=== PATIENT | female | born 1980 | race Caucasian/White ===

== ENCOUNTER 2023-11-27 08:49 | Inpatient (IN) ==
[~2023-11-27 08:49] MED LIST: MAGNESIUM SULFATE IVPB SCH; NS 0.9% IVPB SCH; POTASSIUM CHLORIDE IVPB SCH
[2023-11-27 09:30] LABS: Hematocrit 29.3 % (35-45); Hemoglobin 9.4 g/dL (11.5-14.3); Mean Corpuscular Hemoglobin 24.7 pg (27-33); Mean Corpuscular Volume 77.3 fL (80-97); Platelet Count 298 10^3/uL (150-450); Red Blood Count 3.79 10^6/uL (3.63-4.92); Red Cell Distribution Width 15.7 % (12-17); White Blood Count 4.6 10^3/uL (3.8-11.8)
[2023-11-27 09:32] LABS: ABS Eosinophils 0.2 10^3/uL (0.0-0.5); ABS Monocytes 1.2 10^3/uL (0.0-0.9); ABS Neutrophils 2.3 10^3/uL (1.5-7.6); Eosinophil % 4.7 %; Lymphocyte % 20.9 %; Nucleated Red Blood Cells % 0.1 %/100WBC (0.0-0.8)
[2023-11-27 09:49] LABS: Calcium 7.6 mg/dL (8.6-10.3); Creatinine, Serum 0.48 mg/dL (0.51-0.95); Magnesium 1.5 mg/dL (1.9-2.7); eGFR CKD-EPI 120.5 (>60)
[2023-11-27] MEDS ORDERED: NS 0.9% 1000 ml BAG 1,000 ML IV SCH ×2 (11:30→12:09)
[2023-11-27] MEDS ORDERED: Zosyn per Pharmacy NOTE FOLLOW UP SCH (12:00)
[2023-11-27] MEDS ORDERED: Ondansetron ODT 4 mg TAB 4 MG TAB PO PRN (12:26)
[2023-11-27] MEDS: Enoxaparin 40 MG/0.4 ML SYR SUBCUT SCH (15:56)
[2023-11-27] MEDS ORDERED: Piperacillin/Tazobac 3.375 BAG 3.375 GM/100 ML BAG IV ONE (16:00)
[2023-11-27] MEDS: Diphenoxylat/Atrop 2.5-0.025mg TAB PO PRN (17:19)
[2023-11-27] MEDS: ZOSYN 3.375 GM Q8H per EXTENDED INFUSION IV SCH (20:45)
[2023-11-28] MEDS: ZOSYN 3.375 GM Q8H per EXTENDED INFUSION IV SCH (05:01)
[2023-11-28 05:11] LABS: Hematocrit 24.3 % (35-45); Hemoglobin 7.9 g/dL (11.5-14.3); Mean Corpuscular Hemoglobin 25.2 pg (27-33); Mean Corpuscular Hgb Conc 32.7 g/dL (31-36); Mean Platelet Volume 6.6 fL (7.5-11.2); Platelet Count 255 10^3/uL (150-450); Red Blood Count 3.15 10^6/uL (3.63-4.92); Red Cell Distribution Width 16.2 % (12-17); White Blood Count 4.6 10^3/uL (3.8-11.8)
[2023-11-28 05:15] LABS: ABS Eosinophils 0.4 10^3/uL (0.0-0.5); ABS Lymphocytes 1.3 10^3/uL (1.0-4.8); ABS Neutrophils 1.9 10^3/uL (1.5-7.6); Eosinophil % 9.2 %; Lymphocyte % 27.7 %; Nucleated Red Blood Cells % 0.1 %/100WBC (0.0-0.8)
[2023-11-28 05:28] LABS: Albumin 2.4 g/dL (3.2-5.2); Albumin/Globulin Ratio 1.5 (1-3); Calcium 7.2 mg/dL (8.6-10.3); Creatinine, Serum 0.43 mg/dL (0.51-0.95); Globulin 1.6 g/dL (2-4); Total Bilirubin 0.3 mg/dL (0.2-1.0); eGFR CKD-EPI 123.7 (>60)
[2023-11-28 09:10] LABS: Magnesium 1.7 mg/dL (1.9-2.7)
[2023-11-28] MEDS: Diphenoxylat/Atrop 2.5-0.025mg TAB PO PRN (10:50)
[2023-11-28] MEDS ORDERED: Magnesium Sulf 4 GM/100 ML IV 4,000 MG/100 ML BAG IVPB ONE (12:30)
[2023-11-28] MEDS ORDERED: Potassium Chlor 20 meq TAB.ER PO ONE (12:34)
[2023-11-28 14:22] VITALS: BP 110/77
[2023-11-28] MEDS: KCL 20 MEQ/100 ML IVPREMIX 20 MEQ/100 ML BAG IV SCH ×2 (16:12→17:10)
[2023-11-28] MEDS ORDERED: Potassium Chloride LIQUID 20 MEQ/15 ML LIQUID PO ONE (16:20)
[2023-11-28] MEDS: Enoxaparin 40 MG/0.4 ML SYR SUBCUT SCH (16:36)
== END 2023-11-28 18:30 | disposition home or self-care (01) | DRG 425 ==
LOC: CHOA 08:49 → SSU 11:24
PROVIDERS: ADMIT Internal Medicine Hematology & Oncology; ATTEND Internal Medicine

== ENCOUNTER 2024-01-14 11:31 | Inpatient (IN) ==
[2024-01-14 12:18] LABS: Hematocrit 34.7 % (35-45); Hemoglobin 11.3 g/dL (11.5-14.3); Mean Corpuscular Hemoglobin 24.9 pg (27-33); Mean Corpuscular Hgb Conc 32.4 g/dL (31-36); Mean Corpuscular Volume 76.8 fL (80-97); Platelet Count 299 10^3/uL (150-450); Red Blood Count 4.52 10^6/uL (3.63-4.92); Red Cell Distribution Width 23.2 % (12-17); White Blood Count 1.6 10^3/uL (3.8-11.8)
[2024-01-14] MEDS: Lactated Ringers 1000 ml BAG 1,000 ML IV ONE (13:00)
[2024-01-14 13:10] LABS: Albumin 2.6 g/dL (3.2-5.2); Albumin/Globulin Ratio 1.5 (1-3); C Reactive Protein 188.06 mg/L (<8.01); Calcium 7.8 mg/dL (8.6-10.3); Creatinine, Serum 0.72 mg/dL (0.51-0.95); Globulin 1.7 g/dL (2-4); Magnesium 1.6 mg/dL (1.9-2.7); Potassium 4.1 mmol/L (3.5-5.0); Total Bilirubin 0.8 mg/dL (0.2-1.0); Total Protein 4.3 g/dL (6.4-8.9); eGFR CKD-EPI 106.3 (>60)
[2024-01-14 13:44] LABS: High Sensitivity Troponin 1 Hr 12 pg/mL (<15)
[2024-01-14 14:40] LABS: ABS Lymphocytes 0.4 10^3/uL (1.0-4.8); ABS Monocytes 0.6 10^3/uL (0.0-0.9); ABS Neutrophils 0.6 10^3/uL (1.5-7.6); ABS Nucleated RBC 0.01 10^3/ul; Eosinophil % 0.2 %; Nucleated Red Blood Cells % 0.7 %/100WBC (0.0-0.8)
[2024-01-14 14:41] LABS: Anisocytosis 2+; Microcytosis 1+
[2024-01-14] MEDS: Iohexol 300 (CONTRAST) 10 ML SDV IV ONE (14:54)
[2024-01-14] MEDS: Magnesium Sulfate 2 gm BAG 2 GM/50 ML BAG IVPB ONE (15:06)
[2024-01-14] MEDS: Morphine 4 MG/ML VIAL (1 ml) IV ONE ×2 (15:06→18:55)
[2024-01-14] MEDS: CALCIUM GLUCONATE 1GM/50ML NS 1 GM/50 ML BAG IV ONE (16:15)
[2024-01-14] MEDS: Enoxaparin 40 MG/0.4 ML SYR SUBCUT ONE (18:21)
[2024-01-14] MEDS: Ondansetron 4 mg VIAL 2 MG/ML 2 ml VIAL IV ONE (21:18)
[2024-01-14 22:16] LABS: Urine Appearance Clear; Urine Bacteria Absent /HPF (Absent); Urine Bilirubin Negative (Negative); Urine Blood Negative (Negative); Urine Color Yellow; Urine Glucose Negative (Negative); Urine Ketones 1+ (Negative); Urine Nitrite Negative (Negative); Urine Protein 1+ (>=30 mg/dL) (Negative); Urine Red Blood Cell 1+(3-5/hpf) /HPF (0-Trace); Urine Specific Gravity >1.050 (1.002-1.030); Urine Squamous Epithelial Cell Present /HPF (Absent); Urine Urobilinogen Negative (Negative); Urine White Blood Cell Trace(0-5/hpf) /HPF (0-Trace)
[2024-01-15] MEDS: Heparin DRIP 25,000 UNITS BAG 25,000 UNITS/250 ML BAG IV SCH (01:42)
[2024-01-15] MEDS: Heparin 5000 UNITS/ML 1 mL VIAL IV SCH (01:44)
[2024-01-15] MEDS: Metoclopramide 5 MG/ML VIAL (10 mg) IV PRN (02:07)
[2024-01-15] MEDS: Lactated Ringers 1000 ml BAG 1,000 ML IV SCH ×2 (02:07→11:48)
[2024-01-15] MEDS: Scopolamine 1 mg/72hr PATCH TRANSDERM SCH (02:08)
[2024-01-15] MEDS: Labetalol IV 5 MG/ML 20 ml VIAL IV PUSH ONE (08:42)
[2024-01-15] MEDS: Morphine 2 MG/ML SYRINGE IV ONE (08:43)
[2024-01-15 08:50] LABS: Albumin 2.5 g/dL (3.2-5.2); Albumin/Globulin Ratio 1.4 (1-3); Calcium 7.4 mg/dL (8.6-10.3); Creatinine, Serum 0.81 mg/dL (0.51-0.95); Globulin 1.8 g/dL (2-4); Magnesium 1.8 mg/dL (1.9-2.7); Potassium 4.9 mmol/L (3.5-5.0); Total Bilirubin 0.8 mg/dL (0.2-1.0); Total Protein 4.3 g/dL (6.4-8.9); eGFR CKD-EPI 92.3 (>60)
[2024-01-15] MEDS ORDERED: Sulfur Hexaflouride MICROSPHR 25 MG VIAL ONE (09:42)
[2024-01-15 09:46] LABS: Hematocrit 35.9 % (35-45); Hemoglobin 11.8 g/dL (11.5-14.3); Mean Corpuscular Hemoglobin 24.9 pg (27-33); Mean Corpuscular Hgb Conc 32.7 g/dL (31-36); Mean Corpuscular Volume 76.1 fL (80-97); Mean Platelet Volume 7.7 fL (7.5-11.2); Platelet Count 394 10^3/uL (150-450); Red Blood Count 4.72 10^6/uL (3.63-4.92); Red Cell Distribution Width 23.9 % (12-17)
[2024-01-15 10:21] LABS: Anisocytosis 2+; Microcytosis 1+; Polychromasia 1+
[2024-01-15 10:22] LABS: ABS Lymphocytes 0.6 10^3/ul (1.0-4.8); ABS Monocytes 0.2 10^3/ul (0.0-0.9)
[2024-01-15 10:26] LABS: ABS Neutrophils 0.2 10^3/ul (1.5-7.6)
[2024-01-15] MEDS: Droperidol 5 MG/2 ML 2 ML VIAL IM ONE (11:09)
[2024-01-15] MEDS: Dexamethasone IV 4 MG/ML VIAL 1 ml VIAL IV SLOW PU ONE (11:46)
[2024-01-15] MEDS: Ondansetron 4 mg VIAL 2 MG/ML 2 ml VIAL IV PRN (16:26)
[2024-01-15] MEDS: Enoxaparin 80 MG/0.8 ML SYR SUBCUT SCH (22:05)
[2024-01-16 07:19] LABS: Calcium 7.1 mg/dL (8.6-10.3); Creatinine, Serum 0.8 mg/dL (0.51-0.95); Magnesium 1.8 mg/dL (1.9-2.7); Potassium 4.3 mmol/L (3.5-5.0); eGFR CKD-EPI 93.7 (>60)
[2024-01-16 07:51] LABS: Hemoglobin 9.9 g/dL (11.5-14.3); Mean Corpuscular Hemoglobin 25.1 pg (27-33); Mean Platelet Volume 7.5 fL (7.5-11.2); Platelet Count 334 10^3/uL (150-450); Red Blood Count 3.95 10^6/uL (3.63-4.92); Red Cell Distribution Width 23.7 % (12-17); White Blood Count 2.3 10^3/uL (3.8-11.8)
[2024-01-16] MEDS: Dexamethasone IV 4 MG/ML VIAL 1 ml VIAL IV SLOW PU ONE ×2 (08:49→11:52)
[2024-01-16] MEDS ORDERED: Naloxone Nasal Spray 4 MG/0.1 ML NASAL.SPR INTRANASAL PRN (12:49)
[2024-01-16] MEDS: D5NS 0.9% 1000 ml BAG 1,000 ML IV SCH (15:44)
[2024-01-16 18:22] LABS: Calcium 6.8 mg/dL (8.6-10.3); Creatinine, Serum 0.73 mg/dL (0.51-0.95); Potassium 4.2 mmol/L (3.5-5.0); eGFR CKD-EPI 104.6 (>60)
[2024-01-16] MEDS: CMCS: Oral Rinse (Biotene)(NF) 237 ML or 473 ML ORAL RINSE BTL MT SCH (23:25)
[2024-01-17 07:53] LABS: Hematocrit 26.7 % (35-45); Hemoglobin 8.7 g/dL (11.5-14.3); Mean Corpuscular Hgb Conc 32.5 g/dL (31-36); Mean Corpuscular Volume 76.9 fL (80-97); Mean Platelet Volume 7.2 fL (7.5-11.2); Platelet Count 283 10^3/uL (150-450); Red Blood Count 3.47 10^6/uL (3.63-4.92); Red Cell Distribution Width 24.2 % (12-17); White Blood Count 3.4 10^3/uL (3.8-11.8)
[2024-01-17 08:13] LABS: Calcium 6.7 mg/dL (8.6-10.3); Creatinine, Serum 0.63 mg/dL (0.51-0.95); Potassium 3.7 mmol/L (3.5-5.0); eGFR CKD-EPI 112.8 (>60)
[2024-01-17 08:50] LABS: ABS Lymphocytes 0.3 10^3/uL (1.0-4.8); ABS Monocytes 0.7 10^3/uL (0.0-0.9); ABS Neutrophils 2.5 10^3/uL (1.5-7.6); ABS Nucleated RBC 0.05 10^3/ul; Lymphocyte % 7.7 %; Nucleated Red Blood Cells % 1.5 %/100WBC (0.0-0.8)
[2024-01-17] MEDS: CMCS: Saliva Substitute (NF) 1 SPRAY BTL MT SCH (14:17)
[2024-01-17] MEDS: Lactated Ringers 1000 ml BAG 1,000 ML IV SCH (15:36)
[2024-01-17] MEDS: D5NS 0.9% 1000 ml BAG 1,000 ML IV SCH (20:51)
[2024-01-17] MEDS ORDERED: Al Hydrox/Mg Hydrox/Simet LIQ 30 ML UDC PO PRN (22:41)
[2024-01-18 05:37] LABS: Anion Gap 7 mmol/L (2-16); Blood Urea Nitrogen 11 mg/dL (6-24); CO2 Carbon Dioxide 17 mmol/L (22-32); Calcium 6.5 mg/dL (8.6-10.3); Chloride 108 mmol/L (101-111); Creatinine, Serum 0.63 mg/dL (0.51-0.95); Glucose 100 mg/dL (70-100); Hematocrit 24.7 % (35-45); Hemoglobin 8.1 g/dL (11.5-14.3); Magnesium 1.9 mg/dL (1.9-2.7); Mean Corpuscular Hemoglobin 25.1 pg (27-33); Mean Corpuscular Hgb Conc 32.9 g/dL (31-36); Mean Corpuscular Volume 76.3 fL (80-97); Mean Platelet Volume 7.1 fL (7.5-11.2); Platelet Count 234 10^3/uL (150-450); Potassium 2.9 mmol/L (3.5-5.0); Red Blood Count 3.23 10^6/uL (3.63-4.92); Red Cell Distribution Width 23.8 % (12-17); Sodium 132 mmol/L (135-145); eGFR CKD-EPI 112.8 (>60)
[2024-01-18] MEDS: KCL 20 MEQ/100 ML IVPREMIX 20 MEQ/100 ML BAG IV SCH ×2 (09:23→16:43)
[2024-01-18] MEDS: Acetaminophen IV 1 GM/100ML 1,000 MG/100 ML BAG IV PRN (09:35)
[2024-01-18 11:45] LABS: Phosphorus 1.3 mg/dL (2.5-5.0)
[2024-01-18 14:18] LABS: % Iron Saturation 10 % (15-55); .Transferrin 145 mg/dL (203-362); Iron 20 ug/dL (50-212); Total Iron Binding Capacity 203 mcg/dL (250-450); Unsaturated Iron Binding 183 ug/dL
[2024-01-18 14:38] LABS: Folate 12.83 ng/mL (5.90-24.80)
[2024-01-18 14:39] LABS: Vitamin B12 > 1450 pg/mL (180-914)
[2024-01-18] MEDS: TPN 24 HR with Dextrose 40% Water 625 ML, Amino Acid Infusion 10% 850 ML, Sterile Water... TPN SCH (18:39)
[2024-01-18] MEDS: Lactated Ringers 1000 ml BAG 1,000 ML IV SCH (18:44)
[2024-01-18] MEDS: Calcium Carb (TUMS) 500 mg CHEW TAB PO PRN (20:24)
[2024-01-18] MEDS: Potassium Phosphate IV 10 MMOL in NS 0.9% 250 ml 250 ML IVPB ONE (22:31)
[2024-01-19 05:50] LABS: Hematocrit 30.4 % (35-45); Hemoglobin 9.9 g/dL (11.5-14.3); Mean Corpuscular Hemoglobin 25.5 pg (27-33); Mean Corpuscular Hgb Conc 32.6 g/dL (31-36); Mean Platelet Volume 7.2 fL (7.5-11.2); Platelet Count 256 10^3/uL (150-450); Red Blood Count 3.89 10^6/uL (3.63-4.92); Red Cell Distribution Width 23.6 % (12-17); White Blood Count 8.8 10^3/uL (3.8-11.8)
[2024-01-19 06:11] LABS: Albumin/Globulin Ratio 1.4 (1-3); Calcium 6.7 mg/dL (8.6-10.3); Creatinine, Serum 0.52 mg/dL (0.51-0.95); Globulin 1.4 g/dL (2-4); Magnesium 1.5 mg/dL (1.9-2.7); Phosphorus 2.3 mg/dL (2.5-5.0); Potassium 3.4 mmol/L (3.5-5.0); Total Bilirubin 1.5 mg/dL (0.2-1.0); Total Protein 3.4 g/dL (6.4-8.9); eGFR CKD-EPI 118.2 (>60)
[2024-01-19 06:19] LABS: ABS Lymphocytes 1.5 10^3/uL (1.0-4.8); ABS Monocytes 1.7 10^3/uL (0.0-0.9); ABS Neutrophils 5.6 10^3/uL (1.5-7.6); ABS Nucleated RBC 0.09 10^3/ul; Eosinophil % 0.4 %; Lymphocyte % 16.7 %
[2024-01-19 06:20] LABS: Anisocytosis 2+; Microcytosis 1+; Nucleated Red Blood Cells % 1.1 %/100WBC (0.0-0.8); Polychromasia 1+
[2024-01-19] MEDS: Magnesium Sulf 4 GM/100 ML IV 4,000 MG/100 ML BAG IVPB ONE (07:46)
[2024-01-19] MEDS: KCL 10 MEQ/50 ML IVPREMIX 10 MEQ/50 ML BAG IV SCH (11:33)
[2024-01-19] MEDS ORDERED: Diphenoxylat/Atrop 2.5-0.025mg TAB PO PRN (11:50)
[2024-01-19] MEDS: Potassium Phosphate IV 15 MMOL in NS 0.9% 250 ml 250 ML IVPB ONE (12:09)
[2024-01-19] MEDS: Diphenoxylat/Atrop 2.5-0.025mg TAB PO SCH (12:23)
[2024-01-19] MEDS: Magic MouthWash1-BEN/MAAL/LIDO 180 ML BTL SWISH SPIT SCH (12:23)
[2024-01-19] MEDS: Cholestyramine Resin 4 GM POWDER PO SCH (12:24)
[2024-01-19] MEDS: Potassium Chlor 20 meq TAB.ER PO ONE (12:24)
[2024-01-19] MEDS: TPN 24 HR with Dextrose 40% Water 625 ML, Amino Acid Infusion 10% 850 ML, Sterile Water... TPN SCH (16:58)
[2024-01-19 18:03] LABS: Calcium 6.4 mg/dL (8.6-10.3); Creatinine, Serum 0.47 mg/dL (0.51-0.95); Potassium 3.3 mmol/L (3.5-5.0); eGFR CKD-EPI 121.1 (>60)
[2024-01-19] MEDS: Calcium (OSCAL) 500 mg TAB PO ONE (18:17)
[2024-01-20 06:26] LABS: Hematocrit 28.2 % (35-45); Hemoglobin 9.3 g/dL (11.5-14.3); Mean Corpuscular Hemoglobin 25.6 pg (27-33); Mean Corpuscular Volume 77.7 fL (80-97); Mean Platelet Volume 7.1 fL (7.5-11.2); Platelet Count 267 10^3/uL (150-450); Red Blood Count 3.63 10^6/uL (3.63-4.92); Red Cell Distribution Width 24.5 % (12-17); White Blood Count 6.6 10^3/uL (3.8-11.8)
[2024-01-20 07:07] LABS: Albumin 1.8 g/dL (3.2-5.2); Albumin/Globulin Ratio 1.4 (1-3); Calcium 6.5 mg/dL (8.6-10.3); Creatinine, Serum 0.43 mg/dL (0.51-0.95); Globulin 1.3 g/dL (2-4); Magnesium 1.6 mg/dL (1.9-2.7); Phosphorus 1.9 mg/dL (2.5-5.0); Potassium 2.9 mmol/L (3.5-5.0); Total Bilirubin 0.6 mg/dL (0.2-1.0); Total Protein 3.1 g/dL (6.4-8.9); eGFR CKD-EPI 123.7 (>60)
[2024-01-20] MEDS: Potassium Chlor 20 meq TAB.ER PO ONE ×2 (08:10→15:49)
[2024-01-20] MEDS: Potassium Phosphate IV 15 MMOL in NS 0.9% 250 ml 250 ML IVPB ONE (10:03)
[2024-01-20] MEDS: TPN 24 HR with Dextrose 40% Water 625 ML, Amino Acid Infusion 10% 850 ML, Sterile Water... TPN SCH ×2 (12:35→15:51)
[2024-01-20] MEDS: Opium Tincture 6 MG/0.6 ML ORAL.LIQ SYRINGE PO SCH (12:47)
[2024-01-20] MEDS: Magnesium Sulf 4 GM/100 ML IV 4,000 MG/100 ML BAG IVPB ONE (17:23)
[2024-01-21 06:23] LABS: ABS Lymphocytes 1.7 10^3/uL (1.0-4.8); ABS Monocytes 1.2 10^3/uL (0.0-0.9); ABS Neutrophils 4.2 10^3/uL (1.5-7.6); ABS Nucleated RBC 0.02 10^3/ul; Eosinophil % 0.5 %; Hemoglobin 9.5 g/dL (11.5-14.3); Lymphocyte % 23.7 %; Mean Corpuscular Hemoglobin 25.9 pg (27-33); Mean Corpuscular Hgb Conc 32.6 g/dL (31-36); Mean Corpuscular Volume 79.5 fL (80-97); Mean Platelet Volume 7.2 fL (7.5-11.2); Nucleated Red Blood Cells % 0.3 %/100WBC (0.0-0.8); Platelet Count 315 10^3/uL (150-450); Red Blood Count 3.65 10^6/uL (3.63-4.92); Red Cell Distribution Width 24.2 % (12-17); White Blood Count 7.2 10^3/uL (3.8-11.8)
[2024-01-21 07:01] LABS: Albumin 1.8 g/dL (3.2-5.2); Albumin/Globulin Ratio 1.3 (1-3); Calcium 6.3 mg/dL (8.6-10.3); Creatinine, Serum 0.44 mg/dL (0.51-0.95); Globulin 1.4 g/dL (2-4); Magnesium 1.8 mg/dL (1.9-2.7); Potassium 3.2 mmol/L (3.5-5.0); Total Bilirubin 0.4 mg/dL (0.2-1.0); Total Protein 3.2 g/dL (6.4-8.9)
[2024-01-21 08:02] LABS: Phosphorus 3.6 mg/dL (2.5-5.0)
[2024-01-21] MEDS: Magnesium Sulfate 2 gm BAG 2 GM/50 ML BAG IVPB ONE (09:03)
[2024-01-21] MEDS: Calcium (OSCAL) 500 mg TAB PO SCH (09:05)
[2024-01-21] MEDS: Potassium Chlor 20 meq TAB.ER PO ONE (09:05)
[2024-01-21 09:58] LABS: Venous Bicarbonate HCO3 12.7 mmol/L (24-28)
[2024-01-21] MEDS: CALCIUM GLUCONATE 1GM/50ML NS 1 GM/50 ML BAG IV SCH (10:45)
[2024-01-21] MEDS: Sodium Bicarb 650 mg (ANTACID) TAB PO SCH (12:37)
[2024-01-21] MEDS ORDERED: Sodium Bicarb 8.4% Vial 50 ML 150 MEQ in D5W 1000 ml BAG 850 ML IV SCH (13:00)
[2024-01-21] MEDS: Sodium Bicarb 8.4% Vial 50 ML 150 MEQ in D5W 1000 ml BAG 850 ML IV SCH (13:34)
[2024-01-22 06:12] LABS: Anion Gap 9 mmol/L (2-16); Blood Urea Nitrogen < 2 mg/dL (6-24); CO2 Carbon Dioxide 26 mmol/L (22-32); Calcium 6.2 mg/dL (8.6-10.3); Chloride 103 mmol/L (101-111); Creatinine, Serum 0.36 mg/dL (0.51-0.95); Glucose 111 mg/dL (70-100); Magnesium 1.4 mg/dL (1.9-2.7); Phosphorus 2.6 mg/dL (2.5-5.0); Potassium 2.4 mmol/L (3.5-5.0); Sodium 138 mmol/L (135-145); eGFR CKD-EPI 129.1 (>60)
[2024-01-22] MEDS: KCL 10 MEQ/50 ML IVPREMIX 10 MEQ/50 ML BAG IV ONE (06:31)
[2024-01-22] MEDS: Potassium Chloride LIQUID 20 MEQ/15 ML LIQUID PO ONE (06:31)
[2024-01-22] MEDS: Magic MouthWash1-BEN/MAAL/LIDO 180 ML BTL SWISH SPIT SCH (07:31)
[2024-01-22] MEDS: Magnesium Sulf 4 GM/100 ML IV 4,000 MG/100 ML BAG IVPB ONE (07:45)
[2024-01-22] MEDS: LACTATED RINGERS IVPB ONE (11:27)
[2024-01-22] MEDS: POTASSIUM CHLORIDE IVPB ONE (11:27)
[2024-01-22] MEDS: CALCIUM GLUCONATE 1GM/50ML NS 1 GM/50 ML BAG IV SCH (11:45)
[2024-01-22] MEDS: Potassium Chlor 20 meq TAB.ER PO ONE ×2 (13:22→22:06)
[2024-01-22 22:07] LABS: Anion Gap 4 mmol/L (2-16); Blood Urea Nitrogen < 2 mg/dL (6-24); CO2 Carbon Dioxide 24 mmol/L (22-32); Calcium 6.8 mg/dL (8.6-10.3); Chloride 107 mmol/L (101-111); Creatinine, Serum 0.44 mg/dL (0.51-0.95); Glucose 106 mg/dL (70-100); Potassium 3.7 mmol/L (3.5-5.0); Sodium 135 mmol/L (135-145)
[2024-01-23 06:09] LABS: Calcium 6.5 mg/dL (8.6-10.3); Creatinine, Serum 0.44 mg/dL (0.51-0.95); Magnesium 1.7 mg/dL (1.9-2.7); Phosphorus 2.8 mg/dL (2.5-5.0); Potassium 3.5 mmol/L (3.5-5.0)
[2024-01-23] MEDS ORDERED: Potassium Chlor 20 meq TAB.ER PO SCH (09:00)
[2024-01-23] MEDS: Potassium Chlor 20 meq TAB.ER PO SCH (09:11)
[2024-01-23] MEDS: Magnesium Sulf 4 GM/100 ML IV 4,000 MG/100 ML BAG IVPB ONE (10:00)
[2024-01-23] MEDS: Magnesium Sulfate 2 gm BAG 2 GM/50 ML BAG IVPB ONE (11:21)
[2024-01-23] MEDS ORDERED: KCL 20 MEQ/100 ML IVPREMIX 20 MEQ/100 ML BAG IV SCH ×2 (13:00)
[2024-01-23] MEDS ORDERED: Opium Tincture 6 MG/0.6 ML ORAL.LIQ SYRINGE PO SCH ×2 (13:00→14:47)
[2024-01-23] MEDS ORDERED: Potassium Chloride LIQUID 20 MEQ/15 ML LIQUID PO SCH (13:00)
[2024-01-23] MEDS: KCL 10 MEQ/50 ML IVPREMIX 10 MEQ/50 ML BAG IV SCH (13:21)
[2024-01-23] MEDS: Opium Tincture 6 MG/0.6 ML ORAL.LIQ SYRINGE PO SCH (14:59)
[2024-01-23 16:07] LABS: Calcium 6.5 mg/dL (8.6-10.3); Creatinine, Serum 0.51 mg/dL (0.51-0.95); Magnesium 2.4 mg/dL (1.9-2.7); Phosphorus 2.5 mg/dL (2.5-5.0); Potassium 3.6 mmol/L (3.5-5.0); eGFR CKD-EPI 118.7 (>60)
[2024-01-23] MEDS: Potassium Chloride LIQUID 20 MEQ/15 ML LIQUID PO ONE (16:53)
[2024-01-23] MEDS: Diphenoxylat/Atrop 2.5-0.025mg TAB PO SCH (16:54)
[2024-01-24 06:10] LABS: ABS Lymphocytes 1.4 10^3/uL (1.0-4.8); ABS Monocytes 0.7 10^3/uL (0.0-0.9); ABS Neutrophils 4.2 10^3/uL (1.5-7.6); ABS Nucleated RBC 0.01 10^3/ul; Eosinophil % 0.2 %; Hematocrit 23.7 % (35-45); Hemoglobin 7.8 g/dL (11.5-14.3); Lymphocyte % 22.4 %; Mean Corpuscular Hgb Conc 32.7 g/dL (31-36); Mean Corpuscular Volume 82.7 fL (80-97); Mean Platelet Volume 7.3 fL (7.5-11.2); Nucleated Red Blood Cells % 0.1 %/100WBC (0.0-0.8); Platelet Count 307 10^3/uL (150-450); Red Blood Count 2.87 10^6/uL (3.63-4.92); White Blood Count 6.4 10^3/uL (3.8-11.8)
[2024-01-24 06:47] LABS: Calcium 6.2 mg/dL (8.6-10.3); Creatinine, Serum 0.4 mg/dL (0.51-0.95); Magnesium 1.7 mg/dL (1.9-2.7); Phosphorus 2.6 mg/dL (2.5-5.0); Potassium 3.2 mmol/L (3.5-5.0); eGFR CKD-EPI 125.9 (>60)
[2024-01-24] MEDS ORDERED: Potassium Chlor 20 meq TAB.ER PO SCH (09:00)
[2024-01-24] MEDS: Magnesium Sulfate 2 gm BAG 2 GM/50 ML BAG IVPB ONE (09:06)
[2024-01-24] MEDS: Potassium Chlor 20 meq TAB.ER PO SCH (09:08)
[2024-01-24] MEDS: Calcium (OSCAL) 500 mg TAB PO ONE ×2 (10:24→18:20)
[2024-01-24] MEDS: Magnesium Sulfate IV 1GM/100ML 1 GM/100 ML BAG IV ONE (10:24)
[2024-01-24 17:12] LABS: Anion Gap 5 mmol/L (2-16); Blood Urea Nitrogen < 2 mg/dL (6-24); CO2 Carbon Dioxide 17 mmol/L (22-32); Calcium 6.3 mg/dL (8.6-10.3); Chloride 114 mmol/L (101-111); Creatinine, Serum 0.38 mg/dL (0.51-0.95); Glucose 98 mg/dL (70-100); Potassium 3.2 mmol/L (3.5-5.0); Sodium 136 mmol/L (135-145); eGFR CKD-EPI 127.4 (>60)
[2024-01-24] MEDS: Sodium Bicarb 650 mg (ANTACID) TAB PO SCH (18:20)
[2024-01-24] MEDS: Potassium Chlor 20 meq TAB.ER PO ONE (18:20)
[2024-01-24] MEDS ORDERED: Sodium Bicarb 650 mg (ANTACID) TAB PO SCH (21:00)
[2024-01-25 06:29] LABS: Hematocrit 24.8 % (35-45); Hemoglobin 8.1 g/dL (11.5-14.3)
[2024-01-25 06:50] LABS: Anion Gap 4 mmol/L (2-16); Blood Urea Nitrogen < 2 mg/dL (6-24); CO2 Carbon Dioxide 19 mmol/L (22-32); Calcium 6.8 mg/dL (8.6-10.3); Chloride 112 mmol/L (101-111); Creatinine, Serum 0.46 mg/dL (0.51-0.95); Glucose 92 mg/dL (70-100); Magnesium 1.6 mg/dL (1.9-2.7); Potassium 3.6 mmol/L (3.5-5.0); Sodium 135 mmol/L (135-145); eGFR CKD-EPI 121.7 (>60)
[2024-01-25 07:28] LABS: Phosphorus 3.2 mg/dL (2.5-5.0)
[2024-01-25] MEDS: Potassium Chlor 20 meq TAB.ER PO SCH (09:11)
[2024-01-25] MEDS: Magnesium Sulf 4 GM/100 ML IV 4,000 MG/100 ML BAG IVPB ONE (09:12)
[2024-01-25] MEDS: HEPARIN ONE (10:16)
[2024-01-25] MEDS: NS 0.9% ONE (10:16)
[2024-01-25] MEDS: Potassium Chlor 20 meq TAB.ER PO ONE (11:54)
[2024-01-25 11:55] LABS: Vitamin D Total 25(OH) 8.1 ng/mL (20-50)
[2024-01-25 12:54] LABS: ABS Basophils 0.1 10^3/uL (0.0-0.1); ABS Lymphocytes 0.7 10^3/uL (1.0-4.8); ABS Monocytes 0.6 10^3/uL (0.0-0.9); ABS Neutrophils 7.1 10^3/uL (1.5-7.6); ABS Nucleated RBC 0.01 10^3/ul; Anisocytosis 2+; Eosinophil % 0.2 %; Hematocrit 27.7 % (35-45); Hemoglobin 8.9 g/dL (11.5-14.3); Lymphocyte % 8.4 %; Macrocytosis 1+; Mean Corpuscular Hemoglobin 27.2 pg (27-33); Mean Corpuscular Hgb Conc 32.2 g/dL (31-36); Mean Corpuscular Volume 84.4 fL (80-97); Mean Platelet Volume 7.2 fL (7.5-11.2); Microcytosis 1+; Nucleated Red Blood Cells % 0.1 %/100WBC (0.0-0.8); Platelet Count 373 10^3/uL (150-450); Red Blood Count 3.27 10^6/uL (3.63-4.92); White Blood Count 8.6 10^3/uL (3.8-11.8)
[2024-01-25] MEDS: Iohexol 300 (CONTRAST) 10 ML SDV IV ONE (15:50)
[2024-01-25 16:36] LABS: Urine Appearance Clear; Urine Bilirubin Negative (Negative); Urine Blood Negative (Negative); Urine Color Light-Yellow; Urine Glucose Negative (Negative); Urine Ketones Negative (Negative); Urine Nitrite Negative (Negative); Urine Protein Trace (Negative); Urine Specific Gravity 1.018 (1.002-1.030); Urine Urobilinogen Negative (Negative); Urine pH 5.5 (5.0-8.0)
[2024-01-25 18:54] LABS: C Reactive Protein 7.13 mg/L (<8.01)
[2024-01-25] MEDS: Sodium Bicarb 650 mg (ANTACID) TAB PO SCH (21:37)
[2024-01-26 06:36] LABS: Calcium 6.4 mg/dL (8.6-10.3); Creatinine, Serum 0.34 mg/dL (0.51-0.95); Magnesium 1.6 mg/dL (1.9-2.7); Phosphorus 2.7 mg/dL (2.5-5.0); Potassium 3.2 mmol/L (3.5-5.0); eGFR CKD-EPI 130.9 (>60)
[2024-01-26 06:45] LABS: ABS Monocytes 0.8 10^3/uL (0.0-0.9); ABS Neutrophils 6.6 10^3/uL (1.5-7.6); Eosinophil % 0.3 %; Hematocrit 23.8 % (35-45); Hemoglobin 7.6 g/dL (11.5-14.3); Lymphocyte % 11.8 %; Mean Corpuscular Hgb Conc 32.1 g/dL (31-36); Mean Corpuscular Volume 84.3 fL (80-97); Mean Platelet Volume 7.5 fL (7.5-11.2); Platelet Count 335 10^3/uL (150-450); Red Blood Count 2.82 10^6/uL (3.63-4.92); Red Cell Distribution Width 27.8 % (12-17); White Blood Count 8.5 10^3/uL (3.8-11.8)
[2024-01-26] MEDS ORDERED: Potassium Phosphate IV 10 MMOL in NS 0.9% 250 ml 250 ML IVPB ONE (07:30)
[2024-01-26] MEDS: Magnesium Sulf 4 GM/100 ML IV 4,000 MG/100 ML BAG IVPB ONE ×2 (08:01→08:46)
[2024-01-26] MEDS: Calcium (OSCAL) 500 mg TAB PO ONE (11:11)
[2024-01-26] MEDS: Potassium Chloride LIQUID 20 MEQ/15 ML LIQUID PO SCH (11:13)
[2024-01-26] MEDS: Calcium (OSCAL) 500 mg TAB PO SCH (11:14)
[2024-01-26] MEDS: Potassium Chlor 20 meq TAB.ER PO SCH (15:14)
[2024-01-26] MEDS ORDERED: fentaNYL 100 mcg/2 ml 50 MCG/ML VIAL ONE (17:35)
[2024-01-26] MEDS ORDERED: Midazolam 10 mg/10 ml VIAL 1 mg/ml 10 ml VIAL (10 mg) ONE (17:35)
[2024-01-26] MEDS: Sodium Bicarb 650 mg (ANTACID) TAB PO SCH (19:25)
[2024-01-26] MEDS ORDERED: Calcium (OSCAL) 500 mg TAB PO SCH (21:00)
[2024-01-27 06:28] LABS: Hematocrit 29.3 % (35-45); Hemoglobin 9.7 g/dL (11.5-14.3)
[2024-01-27 07:35] LABS: Calcium 6.9 mg/dL (8.6-10.3); Creatinine, Serum 0.37 mg/dL (0.51-0.95); Magnesium 1.6 mg/dL (1.9-2.7); Phosphorus 2.6 mg/dL (2.5-5.0); Potassium 3.5 mmol/L (3.5-5.0); eGFR CKD-EPI 128.2 (>60)
[2024-01-27] MEDS: Magnesium Sulf 4 GM/100 ML IV 4,000 MG/100 ML BAG IVPB ONE (11:06)
[2024-01-27] MEDS: Cyanocobalamin INJ 1,000 MCG/ML VIAL 1 ML VIAL IM ONE (11:56)
[2024-01-27 14:19] VITALS: BP 96/67
[2024-01-28 19:19] LABS: Calprotectin 1703 mcg/g
== END 2024-01-27 17:30 | disposition home or self-care (01) | DRG 134 ==
LOC: ED 11:31 → EDHOLD 11:31 → OBSVTOIN 23:19 → INTOOBSV 23:19 → MED 01-15 10:32 → SUATTDRO 01-16 16:02
PROVIDERS: ADMIT Student in an Organized Health Care Education/Training Program; ATTEND Hospitalist